=== PATIENT | male | born 1980 | race Caucasian/White ===

== ENCOUNTER 2016-12-25 10:05 | Emergency (ER) | payer OTHER ==
[~2016-12-25] VITALS: Ht 193 cm; Wt 133.5 kg
[~2016-12-25 10:05] MED LIST: AUGMENTIN875 MG PO; CLARITIN10 MG PO; MOTRIN400 MG PO; TYLENOL EXTRA500 MG PO
[2016-12-25] MEDS ORDERED: KEFLEX500 MG PO (12:14)
[2016-12-25 12:28] VITALS: BP 145/88
== END 2016-12-25 12:28 | disposition home or self-care (01) ==
LOC: EME 10:05
PROC: 0JQF0ZZ Repair Left Upper Arm Subcutaneous Tissue and Fascia, Open Approach (ICD-10-PCS; principal; 2016-12-25)
DX: S41.112A Laceration without foreign body of left upper arm, initial encounter (principal); Y28.8XXA Contact with other sharp object, undetermined intent, initial encounter; Y93.89 Activity, other specified
CPT/HCPCS: 73060; 99281; 99284

== ENCOUNTER 2017-01-08 14:13 | Emergency (ER) | payer OTHER ==
[~2017-01-08] VITALS: Ht 193 cm; Wt 132.0 kg
[~2017-01-08 14:13] MED LIST changes: +KEFLEX500 MG PO
[2017-01-08] MEDS ORDERED: BACTRIM,SEPT1 TABLET PO (16:19)
[2017-01-08 17:15] VITALS: BP 140/87
== END 2017-01-08 17:21 | disposition home or self-care (01) ==
LOC: EME 14:13
DX: M79.89 Other specified soft tissue disorders (principal); S41.112D Laceration without foreign body of left upper arm, subsequent encounter
CPT/HCPCS: 73060; 99281; 99284